=== PATIENT | male | born 1990 ===

== ENCOUNTER 2017-01-05 17:22 | Emergency (ER) | payer BC ==
--- NOTE | 2017-01-05 19:04 | UC ---
General HPI - HPI Summary HPI Summary: Patient is complaining of left sided jaw pain that has increased over the last fe weeks, he at first denies teeth clenching, but then states that he must clench his teeth becasue he has shredded his retainers he wears at night. denies any sinus pain or congestion. pain is only on left TMJ - History of Current Complaint Chief Complaint: UCDentalProblem Stated Complaint: JAW PAIN Time Seen by Provider: 01/05/17 18:46 Hx Obtained From: Patient Onset/Duration: Gradual Onset, Lasting Weeks Timing: Constant - at night Onset Severity: Moderate Current Severity: Moderate Pain Location at: left TMJ at night - Allergy/Home Medications Allergies/Adverse Reactions: Allergies Allergy/AdvReac Type Severity Reaction Status Date / Time No Known Allergies Allergy Verified 01/05/17 18:30 Home Medications: Home Medications Ibuprofen TAB* [Advil TAB*] 400 mg PO Q8H PRN 01/05/17 [History Confirmed ] PMH/Surg Hx/FS Hx/Imm Hx Previously Healthy: Yes - Surgical History Surgical History: Yes Surgery Procedure, Year, and Place: [place] teeth age 20 - Family History Known Family History: Negative: Cardiac Disease, Hypertension - Social History Alcohol Use: None Substance Use Type: None Smoking Status (MU): Never Smoked Tobacco Review of Systems Constitutional: Negative Skin: Negative Eyes: Negative ENT: Negative Respiratory: Negative Cardiovascular: Negative Gastrointestinal: Negative Genitourinary: Negative Motor: Negative Neurovascular: Negative Musculoskeletal: Arthralgia Neurological: Negative Psychological: Negative All Other Systems Reviewed And Are Negative: Yes Physical Exam Triage Information Reviewed: Yes Appearance: Well-Appearing, Well-Nourished, Pain Distress Vital Signs: Initial Vital Signs Temp 98.1 F 01/05/17 18:26 Pulse 60 01/05/17 18:26 Resp 16 01/05/17 18:26 BP 105/60 01/05/17 18:26 Pulse Ox 100 01/05/17 18:26 Vital Signs Reviewed: Yes Eye Exam: Normal Eyes: Positive: Conjunctiva Clear ENT Exam: Normal ENT: Positive: Normal ENT inspection, Hearing grossly normal, Pharynx normal, TMs normal Dental Exam: Normal Neck exam: Normal Neck: Positive: Supple, Nontender, No Lymphadenopathy Respiratory Exam: Normal Respiratory: Positive: Chest non-tender, Lungs clear, Normal breath sounds Cardiovascular Exam: Normal Cardiovascular: Positive: RRR, No Murmur, Pulses Normal Abdominal Exam: Normal Abdomen Description: Positive: Nontender, No Organomegaly, Soft Bowel Sounds: Positive: Present Musculoskeletal: Positive: Strength Intact, ROM Intact, Other: - Pain with opening and closing the jaw on left TMJ, hypertonicity of masseter mucsle notes , no clicking or clunks palpated or heard with movement Neurological Exam: Normal Neurological: Positive: Alert, Muscle Tone Normal Psychological Exam: Normal Skin Exam: Normal Course/Dx - Course Course Of Treatment: hx obtained, exam performed, meds reviewed, recommendations given for symptomatic treatment, referral to PT given if other meausres do not work. - Differential Dx - Multi-Symptom Provider Diagnoses: left TMJ syndrome Discharge - Discharge Plan Condition: Stable Disposition: HOME Patient Education Materials: Temporomandibular Disorder (ED) Additional Instructions: I recommend using ibuprofen, in conjunction with heat and massage over the area. relaxation techniques before bed. if symptoms remain then follow up with physical therapy.
== END 2017-01-05 19:30 | disposition home or self-care (01) ==
LOC: UCCORT 17:22
DX: M26.602 Left temporomandibular joint disorder, unspecified (principal)
CPT/HCPCS: 99201; G0463

== ENCOUNTER 2019-09-21 13:32 | Emergency (ER) | payer BC ==
[2019-09-21 13:55] VITALS: BP 107/70
--- NOTE | 2019-09-21 14:01 | UC ---
Respiratory Complaint HPI - HPI Summary HPI Summary: 28-year-old male who has had cold symptoms since yesterday. He denies any fever or chills however states he does have body aches. He did not receive a flu shot. - History of Current Complaint Chief Complaint: UCGeneralIllness Stated Complaint: CHILLS ACHY COUGH CONGESTION Time Seen by Provider: 09/21/19 13:50 Hx Obtained From: Patient Onset/Duration: Gradual Onset Severity Initially: Mild Severity Currently: Mild Pain Intensity: 4 Character: Cough: Nonproductive Alleviating Factors: Nothing Associated Signs And Symptoms: Positive: URI, Nasal Congestion - Allergies/Home Medications Allergies/Adverse Reactions: Allergies Allergy/AdvReac Type Severity Reaction Status Date / Time No Known Allergies Allergy Verified 09/21/19 13:52 PMH/Surg Hx/FS Hx/Imm Hx - Additional Past Medical History Additional PMH: Patient states he is here mostly for a work note required by his employer. Previously Healthy: Yes - Surgical History Surgical History: Yes Surgery Procedure, Year, and Place: [place] teeth age 20 - Family History Known Family History: Negative: Cardiac Disease, Hypertension - Social History Occupation: Employed Full-time Alcohol Use: None Substance Use Type: None Smoking Status (MU): Never Smoked Tobacco Review of Systems All Other Systems Reviewed And Are Negative: Yes ENT: Positive: Nasal Discharge, Sinus Congestion Respiratory: Positive: Cough - Nonproductive cough Musculoskeletal: Positive: Myalgia Is Patient Immunocompromised?: No Physical Exam Triage Information Reviewed: Yes Appearance: Well-Appearing, No Pain Distress, Well-Nourished Vital Signs: Initial Vital Signs Temp 98.2 F 09/21/19 13:52 Pulse 67 09/21/19 13:52 Resp 14 09/21/19 13:52 BP 107/70 09/21/19 13:52 Pulse Ox 100 09/21/19 13:52 Vital Signs Reviewed: Yes Eyes: Positive: Conjunctiva Clear ENT: Positive: Hearing grossly normal, Pharynx normal, Nasal congestion, Nasal drainage - Clear nasal coryza, TMs normal, Uvula midline Neck: Positive: Supple, Nontender, No Lymphadenopathy Respiratory: Positive: Lungs clear, Normal breath sounds, No respiratory distress, No accessory muscle use Cardiovascular: Positive: RRR, No Murmur, Pulses Normal, Brisk Capillary Refill Musculoskeletal Exam: Normal Neurological Exam: Normal Psychological Exam: Normal Skin Exam: Normal Respiratory Course/Dx - Course Course Of Treatment: Rapid flu test: Negative The patient stated he mostly came because he needed a work note to be out of work for a couple more days. I believe this is more a viral upper respiratory illness and he is to get rechecked care [facility] in 4-5 days if no improvement. - Differential Dx/Diagnosis Provider Diagnosis: URI (upper respiratory infection) Discharge ED - Sign-Out/Discharge Documenting (check all that apply): Patient Departure All imaging exams completed and their final reports reviewed: No Studies - Discharge Plan Condition: Fair Disposition: HOME Patient Education Materials: Upper Respiratory Infection (DC) Forms: *Work Release Referrals: [facility] [Outside] No Primary Care Phys,NOPCP [Primary Care Provider] - Additional Instructions: Increase fluids, may take Tylenol every 4 hours and Motrin every 8 hours as needed for fever, body aches. Definite follow-up with your primary care provider or [facility] if no improvement in 3 or 4 days. - Billing Disposition and Condition Condition: FAIR Disposition: Home
[2019-09-21 14:28] LABS: Influenza A Molecular NEGATIVE (Negative); Influenza B Molecular NEGATIVE (Negative)
== END 2019-09-21 14:43 | disposition home or self-care (01) ==
LOC: UCCORT 13:32
DX: J06.9 Acute upper respiratory infection, unspecified (principal); M79.10 Myalgia, unspecified site
CPT/HCPCS: 99211; G0463